=== PATIENT | female | born 1935 | race Hispanic/Latino ===

== ENCOUNTER 2016-08-16 18:32 | Observation (INO) | payer MEDICARE ==
[2016-08-16] MEDS ORDERED: Sodium Chloride 0.9% 1,000 ML IV STA (19:08)
--- NOTE | 2016-08-16 19:13 | ED PDOC ---
Arrival/HPI - General Chief Complaint: Syncope Time Seen by Provider: 08/16/16 18:51 Historian: Patient - History of Present Illness Narrative History of Present Illness (Text): 08/16/16 18:55 Cheri Moran is an 81 year old female, whose past medical history includes diabetes, hypertension, high cholesterol, and arthritis, who presents to the emergency department complaining of an episode of nausea and weakness prior to arrival. Patient was in the car when she experienced a sudden onset of nausea and weakness with associated sweating, pallor, and dizziness. Patient's family states that she had not taken any medicine for her symptoms. Patient denies any shortness of breath or any other complaint at this time. She did not take any food or drink prior to arrival in the ED and her fingerstick on arrival was 140. PMD: Dr. Becky Smith Time/Duration: Prior to Arrival Symptom Onset: Sudden Symptom Course: Improving Severity Level: Mild Activities at Onset: Light Context: Passenger Past Medical History - Provider Review Nursing Documentation Reviewed: Yes - Cardiac Hx Hypertension: Yes - Pulmonary Hx Respiratory Disorders: No - Neurological Hx Neurological Disorder: No - HEENT Hx HEENT Disorder: No - Renal Hx Renal Disorder: No - Endocrine/Metabolic Hx Diabetes Mellitus Type 2: Yes - Hematological/Oncological Hx Blood Disorders: No - Integumentary Hx Dermatological Disorder: No - Musculoskeletal/Rheumatological Hx Musculoskeletal Disorders: No - Gastrointestinal Hx Gastrointestinal Disorders: No - Genitourinary/Gynecological Hx Genitourinary Disorders: No - Psychiatric Hx Psychophysiologic Disorder: No Hx Substance Use: No Family/Social History - Physician Review Nursing Documentation Reviewed: Yes Family/Social History: No Known Family HX Smoking Status: Never Smoked Hx Alcohol Use: No Hx Substance Use: No Allergies/Home Meds Allergies/Adverse Reactions: Allergies No Known Allergies Allergy (Verified 08/16/16 18:36) Home Medications: Home Meds Medication Instructions Recorded Confirmed Aspirin 81 mg PO DAILY 08/16/16 08/16/16 Carvedilol [Coreg] 12.5 mg PO BID 08/16/16 08/16/16 Cholecalciferol (Vitamin D3) 1 cap PO Q7D 08/16/16 08/16/16 [Vitamin D3] GlipiZIDE [Glucotrol] 5 mg PO DAILY 08/16/16 08/16/16 Losartan/Hydrochlorothiazide 1 tab PO DAILY 08/16/16 08/16/16 [Hyzaar 100-25 Tablet] MetFORMIN [glucoPHAGE] 1,000 mg PO BID 08/16/16 08/16/16 Pravastatin Sodium [Pravachol] 20 mg PO DAILY 08/16/16 08/16/16 Review of Systems - Physician Review All systems were reviewed & negative as marked: Yes - Review of Systems Constitutional: Other (weakness, sweaty, pallor). absent: Fevers, Night Sweats Eyes: absent: Vision Changes ENT: absent: Hearing Changes Respiratory: absent: SOB, Cough Cardiovascular: absent: Chest Pain Gastrointestinal: Nausea. absent: Abdominal Pain Genitourinary Female: absent: Frequency Musculoskeletal: absent: Back Pain, Neck Pain Skin: absent: Rash Neurological: Dizziness Endocrine: absent: Diaphoresis Hemo/Lymphatic: absent: Easy Bleeding Psychiatric: absent: Depression Physical Exam - Physical Exam Narrative Physical Exam (Text): Constitutional: No acute distress. Head: Normocephalic. Atraumatic. Eyes: PERRL. No nystagmus. ENT: Moist mucous membranes. Neck: Supple. Cardiovascular: Regular rate. Chest: No tenderness. Respiratory: Clear to auscultation bilaterally. GI: Soft. Nontender. Nondistended. Back: No CVA tenderness. Musculoskeletal: No tenderness or swelling of extremities. Skin: No rash. Neurologic: Finger to nose, heel to zarate test normal. Motor 5/5 x4. Vital Signs Reviewed: Yes Vital Signs Temp Pulse Resp BP Pulse Ox 08/16/16 18:33 98.3 F 75 18 167/76 H 98 Temperature: Afebrile Blood Pressure: Hypertensive Pulse: Regular Respiratory Rate: Normal Appearance: Positive for: Well-Appearing, Non-Toxic, Comfortable Pain Distress: None Mental Status: Positive for: Alert and Oriented X 3 Finger Stick Blood Glucose: 143 Medical Decision Making ED Course and Treatment: 08/16/16 18:55 Impression: 81 year old female complaining of sudden onset of nausea and dizziness with associated weakness, pallor, and dizziness prior to arrival. Plan: -- Chest X-ray -- Urinalysis -- Labs -- Aspirin and IV fluids -- Reassess and disposition Progress Notes: EKG: Ordered, reviewed, and independently interpreted the EKG. Rate : 76 BPM Rhythm : Sinus Interpretation : Inverted T-waves. Inferior anterolateral. No ST-T elevations. Comparison : No previous EKG for comparison. 08/16/16 19:30 Reviewed radiology, chest x-ray showed no consolidation or infiltrate. Patient denied any chest pain but she had nausea, dizziness, diaphoresis, and with inferior and anterolateral T wave inversions on EKG in this elderly female with diabetes. Will require further observation for ACS rule out. Dr. Bhatti accepts patient to medical service. - Lab Interpretations Lab Results: 08/16/16 18:50 08/16/16 18:50 Lab Results 08/16/16 18:50: Sodium 138, Potassium 3.8, Chloride 100, Carbon Dioxide 27, Anion Gap 15, BUN 45 H, Creatinine 1.2, Est GFR ( Amer) 52, Est GFR (Non- Af Amer) 43, Random Glucose 135 H, Calcium 9.8, Total Bilirubin 0.3, AST 26, ALT 25, Alkaline Phosphatase 88, Total Creatine Kinase 51, Troponin I 0.01, Total Protein 7.7, Albumin 4.2, Globulin 3.5, Albumin/Globulin Ratio 1.2, Lipase 231 08/16/16 18:50: PT 10.2, INR 0.94, APTT 24.4 08/16/16 18:50: WBC 7.3, RBC 3.86, Hgb 11.4 L, Hct 34.5 L, MCV 89.4, MCH 29.5, MCHC 33.0, RDW 13.4, Plt Count 244, MPV 10.6, Gran % 49.1 L, Lymph % (Auto) 39.3 H, [place] % (Auto) 7.9 H, Eos % (Auto) 3.4, Baso % (Auto) 0.3, Gran # 3.58, Lymph # 2.9, [place] # 0.6, Eos # 0.3, Baso # 0.02 I have reviewed the lab results: Yes - RAD Interpretation Radiology Orders: 08/16/16 19:08 CHEST PORTABLE [RAD] Stat - Medication Orders Current Medication Orders: Discontinued Medications Aspirin (Aspirin) 325 mg PO STAT STA Stop: 08/16/16 19:09 Last Admin: 08/16/16 19:49 Dose: 325 mg Sodium Chloride (Sodium Chloride 0.9%) 1,000 mls @ 999 mls/hr IV .Q1H1M STA Stop: 08/16/16 20:08 Last Admin: 08/16/16 19:50 Dose: 999 mls/hr Ondansetron HCl (Zofran Inj) 4 mg IVP STAT STA Stop: 08/16/16 20:14 Last Admin: 08/16/16 20:18 Dose: 4 mg - Scribe Statement The provider has reviewed the documentation as recorded by the Adilene Duong Provider Scribe Attestation: All medical record entries made by the Scribe were at my direction and personally dictated by me. I have reviewed the chart and agree that the record accurately reflects my personal performance of the history, physical exam, medical decision making, and the department course for this patient. I have also personally directed, reviewed, and agree with the discharge instructions and disposition. Disposition/Present on Arrival - Present on Arrival Any Indicators Present on Arrival: No History of DVT/PE: No History of Uncontrolled Diabetes: No Urinary Catheter: No History of Decub. Ulcer: No History Surgical Site Infection Following: None - Disposition Have Diagnosis and Disposition been Completed?: Yes Diagnosis: Acute electrocardiogram changes Disposition: HOSPITALIZED Disposition Time: 21:07 Patient Plan: Observation, Telemetry Condition: FAIR
[2016-08-16 19:35] LABS: ADD MANUAL DIFF? NO
[2016-08-16 19:40] LABS: BASO # 0.02 K/mm3 (0.0-2.0); BASO % 0.3 % (0.0-3.0); EOS # 0.3 (0.0-0.7); EOS % 3.4 % (1.5-5.0); GRAN # 3.58 (1.4-6.5); GRAN % 49.1 % (50.0-68.0); HEMATOCRIT 34.5 % (36.0-48.0); LYMPH # 2.9 (1.2-3.4); LYMPH % 39.3 % (22.0-35.0); MEAN CELL VOLUME 89.4 fL (80.0-105.0); MEAN CORPUSCULAR HEMOGLOBIN 29.5 pg (25.0-35.0); MEAN PLATELET VOLUME 10.6 fl (7.0-11.0); MONO # 0.6 (0.1-0.6); MONO % 7.9 % (1.0-6.0); PLATELET COUNT 244 10^3/uL (120.0-450.0); RED CELL DISTRIBUTION WIDTH 13.4 % (11.5-14.5); WHITE BLOOD COUNT 7.3 10^3/ul (4.5-11.0)
[2016-08-16 19:49] LABS: INR 0.94 (0.93-1.08); PARTIAL THROMBOPLASTIN TIME 24.4 Seconds (23.7-30.8)
[2016-08-16 19:50] LABS: ALB/GLOB RATIO 1.2 (1.1-1.8); BILIRUBIN,TOTAL 0.3 mg/dL (0.2-1.3); CALCIUM 9.8 mg/dL (8.4-10.5); POTASSIUM 3.8 mmol/L (3.6-5.0); TOTAL PROTEIN 7.7 g/dL (5.8-8.3)
[2016-08-16 20:01] LABS: TROPONIN I 0.01 ng/mL
[2016-08-16] MEDS ORDERED: Sodium Chloride 0.45% 1,000 ML IV SCH (22:15)
[2016-08-16 22:24] LABS: URINE BILIRUBIN NEGATIVE (NEGATIVE); URINE BLOOD TRACE-LYSED (NEGATIVE); URINE GLUCOSE (UA) NEGATIVE (NEGATIVE); URINE KETONE TRACE mg/dL (NEGATIVE); URINE LEUKOCYTE ESTERASE NEGATIVE Leu/uL (NEGATIVE); URINE PROTEIN NEGATIVE mg/dL (<30 mg/dL); URINE UROBILINOGEN 0.2 E.U./dL (<1 E.U./dL)
[2016-08-16 22:26] LABS: URINE APPEARANCE CLEAR (CLEAR); URINE COLOR LIGHT YELLOW (YELLOW)
[2016-08-16 22:32] LABS: URINE BACTERIA TRACE (NEG); URINE EPITHELIAL CELLS 0 - 2 /hpf (0-5); URINE RBC 0 - 2 /hpf (0-2); URINE WBC NEGATIVE /hpf (0-6)
[2016-08-17 00:03] VITALS: O2SAT 97
[2016-08-17 05:13] VITALS: BMI 11.6
[2016-08-17 05:55] VITALS: RESP 20
[2016-08-17] MEDS: Insulin Reg-MEDIUM-Coverage SC SCH ×2 (08:19→12:25)
[2016-08-17 08:58] LABS: ALB/GLOB RATIO 1.2 (1.1-1.8); ALKALINE PHOSPHATASE 81 U/L (38-133); ALT/SGPT 25 U/L (7-56); AST/SGOT 21 U/L (15-39); BILIRUBIN,TOTAL 0.3 mg/dL (0.2-1.3); BLOOD UREA NITROGEN 36 mg/dL (7-21); CALCIUM 9.2 mg/dL (8.4-10.5); CARBON DIOXIDE 28 mmol/L (21-33); CHLORIDE 106 mmol/L (98-107); GFR AFRICAN-AMERICAN 58; GLUCOSE,RANDOM 98 mg/dL (70-110); POTASSIUM 4.6 mmol/L (3.6-5.0); SODIUM 140 mmol/L (132-148); TOTAL PROTEIN 7.1 g/dL (5.8-8.3)
[2016-08-17 09:00] LABS: HEMATOCRIT 33.2 % (36.0-48.0); MEAN CELL VOLUME 91.5 fL (80.0-105.0); MEAN CORPUSCULAR HEMOGLOBIN 28.9 pg (25.0-35.0); MEAN CORPUSCULAR HGB CONC 31.6 g/dl (31.0-37.0); MEAN PLATELET VOLUME 9.8 fl (7.0-11.0); RED CELL DISTRIBUTION WIDTH 13.4 % (11.5-14.5); WHITE BLOOD COUNT 7.8 10^3/ul (4.5-11.0)
[2016-08-17 09:20] LABS: TROPONIN I < 0.01 ng/mL
--- NOTE | 2016-08-17 10:03 | RAD ---
HISTORY: nausea COMPARISON: No prior. FINDINGS: LUNGS: No active pulmonary disease. PLEURA: No significant pleural effusion identified, no pneumothorax apparent. CARDIOVASCULAR: Normal. OSSEOUS STRUCTURES: No significant abnormalities. VISUALIZED UPPER ABDOMEN: Normal. OTHER FINDINGS: None. IMPRESSION: No active disease.
--- NOTE | 2016-08-17 10:12 | HP ---
I had a nice conversation with her and her daughter this morning. She is here with a very interestin g history. They were leaving [place] after dinner and as they were driving past [address], she had an epis ode of nauseousness, epigastric pain sudden onset, sweating, pallor, dizziness and they came straight to the Emergency Room. She just finished having dinner and had a blood sugar of 140, felt very leth argic and weak. She has a history of diabetes, hypertension, high cholesterol. She is from [facility]. She sees her doctors down there. She is an 81-year-old female with sudden onset fatigue, nausea, vomiting, sweating, pallor, dizziness. SOCIAL HISTORY: She never smoked, no alcohol, no drugs. FAMILY HISTORY: No family history that she knows of. ALLERGIES: No known drug allergies. MEDICATIONS: She is on aspirin, Coreg, vitamin D3 for low vitamin D, Glucotrol, losartan/hydrochloro thiazide, Glucophage, and Pravachol. REVIEW OF SYSTEMS: She is weak and sweaty and pale. Right now, she is back to her old self, sitting up eating breakfast and happy. No acute vision changes, no acute hearing changes, but old. No shor tness of breath. No chest pain. There was nauseousness. She did not throw up. No problems urinati ng. No neck pain or back pain. No rashes. She felt a little bit dizzy and she was sweating a littl e bit, but now she is all better. It is all gone. No wheezy bleeding, no depression or anxiety. PHYSICAL EXAMINATION: VITAL SIGNS: She has a 98.3 temp, 75 pulse, 18 respiratory rate, 167/76 blood pressure, 98% O2 sat o n room air. HEENT: Head is atraumatic, normocephalic. Well appearing, nontoxic, comfortable at this time. She tells me she is back to normal, alert and oriented x 3. Extraocular muscles are intact. Throat is m oist. NECK: Supple. HEART: Regular rate. LUNGS: Decreased breath sounds, but clear to auscultation. ABDOMEN: Soft, nontender, positive bowel sounds. EXTREMITIES: Have no edema. She could walk. She could move all extremities. NEUROLOGIC: She is comfortable. She is happy. No palpable lymphadenopathy appreciated. Thyroid is midline. GCS is 15. Cranial nerves II-XII grossly intact. She is back on her medications and IV f luids. LABORATORY DATA: She had laboratory when she came in. White count was 7.3, hemoglobin 11.4, hematoc rit 34.5, platelets 244. INR is 0.94. She has a 138 sodium, potassium 3.8, BUN is 45, creatinine 1. 2. She is little bit dehydrated possibly. Sugar is 135, calcium 9.8, total bili is 0.3. AST is 26, ALT is 25, alk phos 88, total protein is 7.7, troponin 1 is 0.01, albumin is 4.2. Urine was clean. Chest x-ray and EKG are pending. There is a consult with cardiology. There are labs stat this morning pending. They want to go home back to [facility] and follow up with her doctors which sounds like a good plan. She is on IV flui ds. I will wait for labs to come back, see what cardio has to say and if everything is okay this mo rning with the lab, I will probably discharge her to follow up with her doctor on the outpatient. We will talk about that later. She is here for nauseousness, indigestion. Horace Bhatti DO cc: [id number] TT: 08/17/2016 10:12:20 ky
[2016-08-17 12:18] VITALS: PULSE 80
--- NOTE | 2016-08-17 13:41 | CON ---
DATE: 08/17/2016 REASON FOR CONSULTATION: Dizziness and near syncope as well as abnormal EKG. The patient is an 81-year-old elderly female, who traveled yesterday from her house in [facility] t o [place] to attend a graduation ceremony for her granddaughter and after having dinner in [place], s he felt dizzy, diaphoretic, and appeared pale lethargic, and was brought to the Emergency Room. The patient is hypertensive and diabetic. Her blood sugar was 140 when it was first checked. The patien t denies any retrosternal chest pain. The patient is unaware of any venous clotting in the past. Th e patient has a history of heart murmur as a child, but had no problems as an adult person and has no t seen a song lyricist for so many years. The patient denies any similar episodes of fainting in the past. SOCIAL HISTORY: The patient is a nonsmoker. MEDICATIONS: Coreg 12.5 mg once a day, Cozaar 100 mg once a day, aspirin 81 mg once a day, metformin 1 gram twice a day, glipizide 5 mg once a day, Lipitor 10 mg once a day, half normal saline at 30 mL an hour. REVIEW OF SYSTEMS: No fever or chills. No retrosternal chest pain. No productive cough. The patie nt did experience nausea, but no vomiting. PHYSICAL EXAMINATION: GENERAL: The patient is an elderly female who does not appear to be in acute distress. VITAL SIGNS: Blood pressure 185/70, heart rate 70, temperature 98.7, respiration 20. HEENT: Pale conjunctivae. CHEST: Clear. HEART: S1, S2 regular. ABDOMEN: Soft. EXTREMITIES: No edema or calf tenderness. LABORATORIES: Hemoglobin and hematocrit 10.5 and 33.2, white count and platelet count are within nor mal limits. SMA-7 is within normal limits except for BUN of 36. Two sets of troponins are negative. PT, PTT are within normal limits. EKG revealed sinus rhythm at a rate of 76, anterior and inferolateral ischemic Q-wave changes with pr olonged QT interval. Chest x-ray: Borderline cardiomegaly, prominent bronchovascular markings. ASSESSMENT: 1. Dizziness and near syncope. 2. Abnormal EKG with diffuse ischemic T-wave changes and prolonged QT interval. 3. Hypertension and diabetes mellitus. RECOMMENDATIONS: Continue Coreg at 12.5 mg once a day, Cozaar at 100 mg once a day, aspirin 81 mg on ce a day. Discontinue Glucophage. Continue glipizide at 5 mg once a day, hydrochlorothiazide 25 mg once a day, Lipitor at 10 mg once a day, half normal saline at 30 mL an hour. Obtain chest CT angio to rule out pulmonary embolism. Obtain an echocardiogram and head CT scan without contrast. Case wa s discussed with the patient's daughter at the bedside. Raghu Duron MD cc: [id number] TT: 08/17/2016 13:40:48 Confirmation # [id number] Dictation # [id number] en
[2016-08-17] MEDS ORDERED: Iohexol 350 MG/100 ML VIAL ONE (14:32)
--- NOTE | 2016-08-17 14:55 | CT ---
PROCEDURE: CT HEAD WITHOUT CONTRAST. HISTORY: near syncope COMPARISON: None available. TECHNIQUE: Axial computed tomography images were obtained through the head/brain without intravenous contrast. Radiation dose: Total exam DLP = 733 mGy-cm. This CT exam was performed using one or more of the following dose reduction techniques: Automated exposure control, adjustment of the mA and/or kV according to patient size, and/or use of iterative reconstruction technique. FINDINGS: HEMORRHAGE: No intracranial hemorrhage. BRAIN: No mass effect or edema. No atrophy or chronic microvascular ischemic changes. VENTRICLES: Unremarkable. No hydrocephalus. CALVARIUM: Unremarkable. PARANASAL SINUSES: Unremarkable as visualized. No significant inflammatory changes. MASTOID AIR CELLS: Unremarkable as visualized. No inflammatory changes. OTHER FINDINGS: None. IMPRESSION: No acute findings
--- NOTE | 2016-08-17 15:21 | CARD ---
APPROVED REPORT EKG Measurement Heart [id number] <Conclusion> Sinus rhythm with 1st degree AV block T wave abnormality, consider inferior ischemia T wave abnormality, consider anterolateral ischemia Prolonged QT Abnormal ECG
--- NOTE | 2016-08-17 15:22 | CARD ---
APPROVED REPORT EKG Measurement Heart [id number] <Conclusion> Sinus rhythm with 1st degree AV block T wave abnormality, consider inferior ischemia T wave abnormality, consider anterolateral ischemia Prolonged QT Abnormal ECG
--- NOTE | 2016-08-17 15:23 | CT ---
PROCEDURE: CT Chest with contrast (Pulmonary Angiogram) HISTORY: r/o PE COMPARISON: None available. TECHNIQUE: Axial computed tomography images were obtained of the chest in the pulmonary arterial phase of enhancement. Coronal and sagittal reformatted images were created and reviewed. Intravenous contrast dose: 100 cc of Omni 350 Radiation dose: Total exam DLP = 340 mGy-cm. This CT exam was performed using one or more of the following dose reduction techniques: Automated exposure control, adjustment of the mA and/or kV according to patient size, and/or use of iterative reconstruction technique. FINDINGS: PULMONARY ARTERIES: Unremarkable. No pulmonary embolism. AORTA: No acute findings. No thoracic aortic aneurysm. LUNGS: Unremarkable. No nodule, mass or pulmonary consolidation. PLEURAL SPACES: Unremarkable. No effusion or pneuomothorax. HEART: Unremarkable. No cardiomegaly. No significant pericardial effusion. LYMPH NODES: No lymphadenopathy. BONES, CHEST WALL: Unremarkable. No fracture or destructive lesion OTHER FINDINGS: Unremarkable. IMPRESSION: Unremarkable CT pulmonary angiogram. No pulmonary embolus.
--- NOTE | 2016-08-17 15:44 | CARD ---
APPROVED REPORT EXAM: Two-dimensional and M-mode echocardiogram with Doppler and color Doppler. INDICATION Cardiac Disease: CAD 2D DIMENSIONS Left Atrium (2D)4.0 (1.6-4.0cm)IVSd1.0 (0.7-1.1cm) LVDd4.2 (3.9-5.9cm)PWd1.1 (0.7-1.1cm) LVDs2.5 (2.5-4.0cm)FS (%) 40.5 % LVEF (%)71.6 (>50%) M-Mode DIMENSIONS Aortic Root2.30 (2.2-3.7cm)Aortic Cusp Exc.1.60 (1.5-2.0cm) Aortic Valve AoV Peak Vydvpeou662.0cm/Oumar Peak GR.13mmHg Mitral Valve MV E Rjgcarfn28.3cm/sMV A Vdwvxmgx529.0cm/sE/A ratio0.7 TDI E/Lateral E'0.0E/Medial E'0.0 Tricuspid Valve TR Peak Sihkfqdi520cf/sRAP [id number] Peak Gr.27mmHg [id number] LEFT VENTRICLE The left ventricle is normal size. There is normal left ventricular wall thickness. The left ventricular function is normal. The left ventricular ejection fraction is within the normal range. There is normal LV segmental wall motion. Transmitral Doppler flow pattern is Grade I-abnormal relaxation pattern. RIGHT VENTRICLE The right ventricle is normal size. There is normal right ventricular wall thickness. The right ventricular systolic function is normal. ATRIA The left atrium is borderline dilated. The right atrium size is normal. AORTIC VALVE The aortic valve is mildly thickened. There is no aortic valvular stenosis. MITRAL VALVE Mitral annular calcification is mild to moderate. Mitral regurgitation is mild to moderate. TRICUSPID VALVE There is mild tricuspid regurgitation. There is mild pulmonary hypertension. GREAT VESSELS The aortic root is normal in size. The IVC is normal in size and collapses >50% with inspiration. PERICARDIAL EFFUSION There is no pleural effusion. <Conclusion> The left ventricle is normal size. There is normal left ventricular wall thickness. The left ventricular function is normal. The left ventricular ejection fraction is within the normal range. There is normal LV segmental wall motion. Transmitral Doppler flow pattern is Grade I-abnormal relaxation pattern. Mitral regurgitation is mild to moderate. There is mild tricuspid regurgitation. There is mild pulmonary hypertension.
[2016-08-17 20:28] VITALS: BP 155/70; TEMP 98.3
--- NOTE | 2016-08-31 12:52 | DS ---
She came in with her daughter, being in [place], had episodes of nauseousness, epigastric pain. Cam e to the Emergency Room, blood sugar was 140. She did well. She had lots of blood tests done. Card iology came in and said she could be discharged. She was sent home. She will go home on her regular medications. She will follow up with her primary care doctor in the next 2-3 days. They understand this. She did well with her lab tests. The patient had some nauseousness and vomiting. Horace Bhatti DO cc: [id number] TT: 08/31/2016 12:51:11 en
== END 2016-08-17 17:29 | disposition home or self-care (01) ==
LOC: ED 18:32 → ERH 21:35 → 2RNO 08-17 01:06
PROVIDERS: ADMIT Family Medicine; ATTEND Family Medicine
DX: R42 Dizziness and giddiness (principal); R55 Syncope and collapse; I45.81 Long QT syndrome; I10 Essential (primary) hypertension; E11.9 Type 2 diabetes mellitus without complications; Z79.84 Long term (current) use of oral hypoglycemic drugs; Z79.82 Long term (current) use of aspirin
CPT/HCPCS: 36415; 70450; 71010; 71275; 80053; 81001; 82550; 83690; 83735; 84484; 85025; 85027; 85610; 85730; 93005; 93306; 96374; 99285; G0378; J2405; J7030; J7040; Q9967